=== PATIENT | female | born 1980 | race Caucasian/White ===

== ENCOUNTER → 2019-01-11 | Outpatient (CLI) | payer BC ==
[~2019-01-11] MED LIST: LIDOCAINE HCL 1% LOCAL INJ 20 ML VIAL ONE
--- NOTE | 2019-01-11 10:03 | Diagnostic Imaging Report ---
PROCEDURE: Image Guided Lumbar Puncture Procedural Personnel Attending physician(s): Jose Trammell MD Fellow physician(s): None Resident physician(s): None Advanced practice provider(s): None Pre-procedure diagnosis: Multiple Sclerosis Post-procedure diagnosis: Same Indication: Multiple sclerosis Additional clinical history: None Complications: No immediate complications. IMPRESSION: Fluoroscopically guided lumbar puncture at L3-4 demonstrating opening pressure of 16mmHg. Approximately 19cc of clear CSF obtained and sent for further analysis. Plan: 2 hour supine recovery. PROCEDURE SUMMARY: -Fluoroscopically guided lumbar puncture at L3-4 via posterior interlaminar approach. PROCEDURE DETAILS: Pre-procedure Consent: Informed consent for the procedure including risks, benefits and alternatives was obtained and time-out was performed prior to the procedure. Preparation (MIPS): The site was prepared and draped using all elements of maximal sterile barrier technique including sterile gloves, sterile gown, cap, mask, large sterile sheet, hand hygiene and cutaneous antisepsis with betadine solution. Medical reason for site preparation exception (MIPS): Not applicable Anesthesia/sedation Level of anesthesia/sedation: No sedation Lumbar puncture Under continuous fluoroscopic guidance, a 20-gauge needle was advanced via a posterior interlaminar approach into the thecal space at the L3-4 level. Clear CSF return was established and opening pressure was measured at 16 mmHg. Subsequently, approximately 19 cc of clear CSF was obtained in sequential order of tubes for further analysis. Contrast Contrast agent: None Contrast volume (mL): 0 Radiation Dose Fluoroscopy time (minutes): 0.7 Reference air kerma (mGy): 11.0 Additional Details Additional description of procedure: None Equipment details: None Specimens removed: None Estimated blood loss (mL): Less than 10 Attestation Signer name: Jose Trammell MD I attest that I was present for the entire procedure. I reviewed the stored images and agree with the report as written. Signed by: Jose Trammell MD on 01/11/2019 10:00 AM
[2019-01-11 10:16] LABS: TOTAL PROTEIN,CSF 32.5 mg/dL (15-40)
[2019-01-11 11:43] LABS: APPEARANCE,CSF CLEAR (CLEAR); COLOR,CSF COLORLESS (COLORLESS); TUBE NUMBER 1
[2019-01-11 11:44] LABS: WHITE BLOOD CELL,CSF 7 cells/uL (0-5)
[2019-01-11 11:46] LABS: APPEARANCE,CSF CLEAR (CLEAR); COLOR,CSF COLORLESS (COLORLESS); TUBE NUMBER 4
[2019-01-11 11:47] LABS: WHITE BLOOD CELL,CSF 10 cells/uL (0-5)
[2019-01-11 14:47] LABS: LYMPHOCYTES,CSF 90 % (40-80); MONOCYTES,CSF 8 %; NEUTROPHILS,CSF 2 % (0-6)
[2019-01-11 14:59] LABS: LYMPHOCYTES,CSF 82 % (40-80); MONOCYTES,CSF 12 %; NEUTROPHILS,CSF 6 % (0-6)
[2019-01-17 15:10] LABS: IGG/ALB RATIO CSF 0.18 (0.00-0.25)
[2019-01-17 21:23] LABS: CSF/SERUM ALBUMIN INDEX 4 (0-8)
== END ==
LOC: DX 07:11
PROVIDERS: ATTEND Psychiatry & Neurology Neurology
DX: G35 Multiple sclerosis (principal)
CPT/HCPCS: 36415; 62270; 77003; 81025; 82040; 82784; 82945; 83916; 84157; 86592; 87070; 87205; 89051; J2001